=== PATIENT | female | born 1995 | race Hispanic/Latino ===

== ENCOUNTER 2018-07-04 17:08 | Emergency (ER) | payer MEDICAID ==
[2018-07-04 17:36] LABS: #Basophils 0.1 thou/uL (0.0-0.2); #Eosinphils 0.1 thou/uL (0.0-0.7); #Lymphocytes 2.3 thou/uL (1.20-3.40); #Monocytes 0.3 thou/uL (0.11-0.59); #Neutrophils 3.9 thou/uL (1.40-6.50); %Basophils 0.8 % (0.0-1.0); %Eosinophils 0.8 % (0.0-10.0); %Lymphocytes 34.6 % (28.0-48.0); %Monocytes 4.6 % (0.0-4.0); %Neutrophils 59.1 % (31.0-61.0); Hemoglobin 13.3 g/dL (12.0-16.0); Mean Corpuscular HGB CONC 33.6 g/dL (32.0-36.0); Mean Corpuscular Volume 92.2 fL (78.0-98.0); Mean Platelet Volume 8.6 fL (7.4-10.4); Platelet Count 217 thou/uL (130-400); White Blood Cell (WBC) Count 6.5 thou/uL (4.8-10.8)
[2018-07-04 17:54] LABS: ALT (SGPT) Less than 7 U/L (8-55); AST (SGOT) 11 U/L (5-34); Albumin 4.4 g/dL (3.5-5.0); Alkaline Phosphatase 55 U/L (40-150); Anion Gap 12 mmol/L (10-20); BUN (Urea Nitrogen) 11 mg/dL (7.0-18.7); Bilirubin, Total 0.3 mg/dL (0.2-1.2); Calc. Creatinine Clearance 0 mL/min (70-130); Calcium 9.5 mg/dL (7.8-10.44); Carbon Dioxide 26 mmol/L (22-29); Chloride 104 mmol/L (98-107); Estimated GFR-MDRD Greater than 90; Globulin 3.4 g/dL (2.4-3.5); Glucose 84 mg/dL (70-105); Lipase 23 U/L (8-78); Potassium 3.7 mmol/L (3.5-5.1); Protein, Total 7.8 g/dL (6.0-8.3); Sodium 138 mmol/L (136-145)
[2018-07-04 19:10] LABS: Bilirubin Negative (Negative); Blood, Urine Negative (Negative); Clarity CLOUDY (Clear); Glucose, Urine (Dipstick) Negative (Negative); Leukocyte Moderate (Negative); Nitrite Negative (Negative); Protein, Urine (Dipstick) Negative (Neg-Trace); Specific Gravity, Urine 1.026 (1.002-1.036); Urobilinogen 0.2 mg/dL (0.2-1.0); pH, Urine 5.5 (5.0-9.0)
[2018-07-04 19:15] LABS: Bacteria/HPF Rare-Few HPF (None Seen); WBC/HPF 21-50 HPF (0-3)
[2018-07-04 19:19] LABS: Pathc Cast-AUWi Flag 8.14 (0-2.49); Yeast-AUWi Flag 71.8 (0-25.0)
[2018-07-04 19:20] LABS: Pregnancy Test - Urine (BHCG) Negative (Negative); Specific Gravity 1.026 (1.002-1.036)
[2018-07-04 19:21] LABS: Pregu Control Background? CLEAR/WHITE (CLR/WHITE); Pregu Control Bar Appear? YES (CONTROL BAR)
[2018-07-04 19:33] LABS: RBC/HPF 0-3 HPF (0-3)
[2018-07-04 19:34] LABS: Hyaline Casts/LPF 0-3 HYALINE CAST LPF (0-3 Hyaline); Yeast-All Forms None Seen HPF (None Seen)
[2018-07-04] MEDS ORDERED: Dicyclomine 20 MG TAB ONE (19:44)
== END 2018-07-04 20:31 | disposition home or self-care (01) ==
LOC: ERS 17:08
DX: N39.0 Urinary tract infection, site not specified (principal); F90.9 Attention-deficit hyperactivity disorder, unspecified type
CPT/HCPCS: 36415; 80053; 81003; 81015; 81025; 83690; 85025; 99284

== ENCOUNTER 2018-08-25 16:00 | Emergency (ER) | payer MEDICAID ==
[2018-08-25 16:53] LABS: Bilirubin Negative (Negative); Blood, Urine Negative (Negative); Clarity CLOUDY (Clear); Glucose, Urine (Dipstick) Negative (Negative); Leukocyte Moderate (Negative); Nitrite Negative (Negative); Pregnancy Test - Urine (BHCG) Negative (Negative); Pregu Control Background? CLEAR/WHITE (CLR/WHITE); Pregu Control Bar Appear? YES (CONTROL BAR); Protein, Urine (Dipstick) Negative (Neg-Trace); Specific Gravity 1.037 (1.002-1.036); Specific Gravity, Urine 1.037 (1.002-1.036); Urobilinogen 0.2 mg/dL (0.2-1.0)
[2018-08-25 16:58] LABS: Bacteria/HPF 1+ HPF (None Seen)
[2018-08-25 16:59] LABS: Yeast-AUWi Flag 63.3 (0-25.0)
[2018-08-25 17:03] LABS: #Basophils 0.1 thou/uL (0.0-0.2); #Eosinphils 0.1 thou/uL (0.0-0.7); #Lymphocytes 3.2 thou/uL (1.20-3.40); #Monocytes 0.4 thou/uL (0.11-0.59); #Neutrophils 3.9 thou/uL (1.40-6.50); %Basophils 1.4 % (0.0-1.0); %Eosinophils 0.9 % (0.0-10.0); %Lymphocytes 41.3 % (28.0-48.0); %Monocytes 5.5 % (0.0-4.0); %Neutrophils 50.9 % (31.0-61.0); Hemoglobin 13.2 g/dL (12.0-16.0); Mean Corpuscular HGB CONC 33.4 g/dL (32.0-36.0); Mean Corpuscular Hemoglobin 29.8 pg (25.0-35.0); Mean Corpuscular Volume 89.1 fL (78.0-98.0); Mean Platelet Volume 9.4 fL (7.4-10.4); Platelet Count 210 thou/uL (130-400); RBC Distribution Width 12.3 % (11.5-14.5); Red Blood Cell (RBC) Count 4.45 mill/uL (4.00-5.20); White Blood Cell (WBC) Count 7.7 thou/uL (4.8-10.8)
[2018-08-25 17:08] LABS: Hyaline Casts/LPF 0-3 HYALINE CAST LPF (0-3 Hyaline); Other Casts/LPF None Seen LPF (0-3 Hyaline)
[2018-08-25 17:10] LABS: RBC/HPF 0-3 HPF (0-3)
[2018-08-25 17:11] LABS: Yeast-All Forms None Seen HPF (None Seen)
[2018-08-25 17:24] LABS: ALT (SGPT) Less than 7 U/L (8-55); AST (SGOT) 10 U/L (5-34); Albumin 4.6 g/dL (3.5-5.0); Alkaline Phosphatase 53 U/L (40-150); Anion Gap 11 mmol/L (10-20); BUN (Urea Nitrogen) 17 mg/dL (7.0-18.7); Bilirubin, Total 0.3 mg/dL (0.2-1.2); Calc. Creatinine Clearance 0 mL/min (70-130); Calcium 9.7 mg/dL (7.8-10.44); Carbon Dioxide 28 mmol/L (22-29); Chloride 107 mmol/L (98-107); Estimated GFR-MDRD Greater than 90; Globulin 2.9 g/dL (2.4-3.5); Glucose 89 mg/dL (70-105); Lipase 28 U/L (8-78); Potassium 4.2 mmol/L (3.5-5.1); Protein, Total 7.5 g/dL (6.0-8.3); Sodium 142 mmol/L (136-145)
== END 2018-08-25 17:55 | disposition home or self-care (01) ==
LOC: ERS 16:00
DX: N39.0 Urinary tract infection, site not specified (principal); F90.9 Attention-deficit hyperactivity disorder, unspecified type
CPT/HCPCS: 36415; 80053; 81003; 81015; 81025; 83690; 85025; 99284

== ENCOUNTER 2018-08-29 16:38 | Emergency (ER) | payer MEDICAID | END 2018-08-29 17:27 | disposition home or self-care (01) | LOC: ERS 16:38 | DX: S39.011A Strain of muscle, fascia and tendon of abdomen, initial encounter (principal); F90.9 Attention-deficit hyperactivity disorder, unspecified type; W19.XXXA Unspecified fall, initial encounter | CPT/HCPCS: 99283 ==

== ENCOUNTER 2018-08-31 06:45 | Emergency (ER) | payer MEDICAID, OTHER ==
[2018-08-31 07:39] LABS: #Eosinphils 0.1 thou/uL (0.0-0.7); #Lymphocytes 2.7 thou/uL (1.20-3.40); #Monocytes 0.4 thou/uL (0.11-0.59); #Neutrophils 3.1 thou/uL (1.40-6.50); %Basophils 0.5 % (0.0-1.0); %Eosinophils 1.3 % (0.0-10.0); %Lymphocytes 43.3 % (28.0-48.0); %Monocytes 6.2 % (0.0-4.0); %Neutrophils 48.7 % (31.0-61.0); Hemoglobin 12.2 g/dL (12.0-16.0); Mean Corpuscular HGB CONC 34.2 g/dL (32.0-36.0); Mean Corpuscular Hemoglobin 30.3 pg (25.0-35.0); Mean Corpuscular Volume 88.5 fL (78.0-98.0); Platelet Count 189 thou/uL (130-400); RBC Distribution Width 12.1 % (11.5-14.5); Red Blood Cell (RBC) Count 4.03 mill/uL (4.00-5.20); White Blood Cell (WBC) Count 6.3 thou/uL (4.8-10.8)
[2018-08-31 07:40] LABS: Bilirubin Negative (Negative); Blood, Urine Negative (Negative); Clarity CLEAR (Clear); Glucose, Urine (Dipstick) Negative (Negative); Leukocyte Negative (Negative); Nitrite Negative (Negative); Protein, Urine (Dipstick) Negative (Neg-Trace); Specific Gravity, Urine 1.024 (1.002-1.036); Urobilinogen 0.2 mg/dL (0.2-1.0)
[2018-08-31 07:42] LABS: Pregnancy Test - Urine (BHCG) Negative (Negative); Pregu Control Background? CLEAR/WHITE (CLR/WHITE); Pregu Control Bar Appear? YES (CONTROL BAR); Specific Gravity 1.024 (1.002-1.036)
[2018-08-31] MEDS ORDERED: Methocarbamol 1 GM in Sodium Chloride 0.9% 100 ML IVPB SCH (07:45)
[2018-08-31 07:57] LABS: ALT (SGPT) Less than 7 U/L (8-55); AST (SGOT) 11 U/L (5-34); Albumin 4.1 g/dL (3.5-5.0); Alkaline Phosphatase 48 U/L (40-150); Anion Gap 10 mmol/L (10-20); BUN (Urea Nitrogen) 9 mg/dL (7.0-18.7); Bilirubin, Total 0.2 mg/dL (0.2-1.2); CK (CPK) 113 U/L (29-168); Calc. Creatinine Clearance 0 mL/min (70-130); Calcium 9.1 mg/dL (7.8-10.44); Carbon Dioxide 26 mmol/L (22-29); Chloride 106 mmol/L (98-107); Estimated GFR-MDRD Greater than 90; Globulin 2.6 g/dL (2.4-3.5); Glucose 96 mg/dL (70-105); Protein, Total 6.7 g/dL (6.0-8.3); Sodium 138 mmol/L (136-145)
[2018-08-31] MEDS ORDERED: Ketorolac Tromethamine 30 MG/ML VIAL ONE (08:10)
--- NOTE | 2018-08-31 09:26 | CT ---
CT ABDOMEN AND PELVIS WITH IV CONTRAST: Date: 08/31/18 Multiple axial tomograms obtained through the abdomen and pelvis with IV enhancement. Oral contrast w as not administered. INDICATION: Right lower quadrant abdominal pain. Flank pain. Patient under treatment for UTI. Comparison made to recent CT abdomen/pelvis dated 07/02/18. FINDINGS: Lung bases clear. Liver, spleen, and pancreas unremarkable. Adrenal glands normal. Kidneys unremarkable. No hydronephrosis. Ureters normal caliber. Urinary bladder is mildly distended. There is evidence of mild bladder wall thickening, which may ind icate cystitis. Small bowel loops normal caliber. Appendix is identified and appears unremarkable. Stool throughout t he colon. Images through the pelvis show an unremarkable uterus and adnexa. There are multiple follicles seen i n both ovaries. Small amount of free fluid in the cul-de-sac. No adenopathy apparent. Nonspecific mes enteric lymph nodes are seen in the right abdomen with lymph nodes measuring up to 1.2 cm. These mese nteric lymph nodes appear stable when compared to 07/02/18. IMPRESSION: 1. Nonspecific mesenteric lymph nodes which are stable from 07/02/18. 2. Mild bladder wall thickening which may indicate cystitis. 3. Otherwise no acute process apparent. POS: [facility] [place]
[2018-08-31] MEDS ORDERED: ISOVUE-370 76%-LOCM 1 ML ONE (11:16)
== END 2018-08-31 09:38 | disposition home or self-care (01) ==
LOC: ERS 06:45
DX: M54.5 Low back pain (principal); F90.9 Attention-deficit hyperactivity disorder, unspecified type
CPT/HCPCS: 36415; 74177; 80053; 81003; 81025; 82550; 85025; 87086; 96365; 96375; J1885; J2800; J3490

== ENCOUNTER 2018-09-11 20:52 | Emergency (ER) | payer OTHER ==
[2018-09-11] MEDS ORDERED: Morphine 4 MG/ML VIAL ONE (21:44)
[2018-09-11] MEDS ORDERED: Ondansetron PF 4 MG/2 ML Vial ONE (21:44)
[2018-09-11] MEDS ORDERED: Acetaminophen 500 MG TAB ONE (22:10)
[2018-09-11] MEDS ORDERED: diphenhydrAMINE 50 MG/ML VIAL ONE (22:11)
[2018-09-11] MEDS ORDERED: Metoclopramide HCl 10 MG/2 ML VIAL ONE (22:11)
--- NOTE | 2018-09-11 22:21 | CT ---
CT Brain WO Con History: [Headache] Comparison: None. Findings: There is an air-fluid level in the right maxillary sinus. No acute hemorrhage or infarct. N o subarachnoid hemorrhage. No midline shift or mass effect. Ventricular size and extra-axial CSF spaces are normal. Mastoids are clear. Calvarium is intact. Impression: Right maxillary sinusitis. No acute intracranial abnormality. No subarachnoid hemorrhage
[2018-09-11] MEDS ORDERED: Lidocaine 1% (PF) 30 ML VIAL ONE (22:58)
[2018-09-11 23:35] LABS: Color Of CSF Supernatant COLORLESS (Colorless); Tube # 2; Unspun CSF Color COLORLESS (Colorless)
[2018-09-11 23:46] LABS: CSF, Glucose 60 mg/dl (40-70); CSF, Protein 47 mg/dL (15-40)
[2018-09-11 23:47] LABS: CSF Source CSF; Clarity Clear (Clear); RBC Count - Manual 1 /cumm (None Seen); Tube # 4; WBC/NonHematics Count - Manual 2 /cumm (0-5)
[2018-09-12 00:09] LABS: CSF Source CSF; Clarity Clear (Clear); RBC Count - Manual 153 /cumm (None Seen); Tube # 1; WBC/NonHematics Count - Manual 5 /cumm (0-5)
== END 2018-09-12 00:29 | disposition home or self-care (01) ==
LOC: ERS 20:52
DX: R51 Headache (principal); F90.9 Attention-deficit hyperactivity disorder, unspecified type
CPT/HCPCS: 62270; 70450; 82945; 84157; 87070; 87205; 89051; 96365; 96366; 96375; J1200; J2001; J2270; J2405; J2765